=== PATIENT | male | born 1990 | race Hispanic/Latino ===

== ENCOUNTER 2016-12-04 18:02 | Emergency (ER) | payer SELFPAY ==
[2016-12-04 18:50] VITALS: BP 114/84
[2016-12-04] MEDS ORDERED: MOTRIN PO ONE (23:34)
[2016-12-04] MEDS ORDERED: VALIUM PO ONE (23:34)
--- NOTE | 2016-12-04 23:37 | Emergency Department Report ---
ED Back Pain/Injury HPI - General Chief Complaint: Back Pain/Injury Stated Complaint: BACK PAIN/SEIZURE Time Seen by Provider: 12/04/16 23:33 Source: patient Limitations: No Limitations - History of Present Illness Initial Comments: 25-year-old male past medical history asthma presents with complaint of 2 weeks of persistent upper and lower back pain. Patient states that he was hospitalized 2 weeks ago in a hospital in [facility] for one episode of seizure activity. Patient states he has never had seizures before. States he was hospitalized for approximately 3 days then discharged. Patient has not had any seizure activity since that date as he claims. Is complaining of upper and lower back pain currently as 7 out of 10, states that his back feels somewhat stiff. Denies any fever or chills no paresthesias in upper or lower extremities denies any direct trauma to his back other than the fall that he sustained when he had the supposed seizure activity 2 weeks ago. Patient denies any bladder or bowel incontinence. Denies any chest pain no shortness of breath no palpitations no fever no chills denies any rash on back. Patient appears somewhat disheveled and aggravated when I speak to him. Awake alert and oriented 3. Patient is able to ambulate but states that when he tries to turn his trunk to the left to the right or bend over forward he experiences stiffening and pain in his back. He claims he does not currently have a primary medical doctor. Complaint: back pain, back injury, fall Onset/Timin -: week(s) Similar Symptoms Previously: Yes Radiation: none Severity: moderate Severity scale (0 -10): 7 Quality: aching Consistency: constant Improves With: immobilization Worsens With: movement Context: while lifting, turning/twisting, bending, fall Associated Symptoms: denies other symptoms - Related Data Previous Rx's Medication Instructions Recorded Last Taken Type Cyclobenzaprine [Flexeril] 10 mg PO TID PRN #10 tablet 12/05/16 Unknown Rx Naproxen [Naprosyn TAB] 500 mg PO BID PRN #30 tablet 12/05/16 Unknown Rx Allergies Allergy/AdvReac Type Severity Reaction Status Date / Time No Known Allergies Allergy Verified 12/04/16 18:46 ED Review of Systems ROS: Stated complaint: BACK PAIN/SEIZURE Other details as noted in HPI Constitutional: denies: chills, fever Eyes: denies: eye pain, eye discharge, vision change ENT: denies: ear pain, throat pain Respiratory: denies: cough, shortness of breath, wheezing Cardiovascular: denies: chest pain, palpitations Endocrine: no symptoms reported Gastrointestinal: denies: abdominal pain, nausea, diarrhea Genitourinary: denies: urgency, dysuria Musculoskeletal: back pain (patient complaining of 2 weeks of persistent lower and upper back pain). denies: joint swelling, arthralgia Skin: denies: rash, lesions Neurological: other (patient claims that he had a seizure 2 weeks ago for which she was hospitalized in a hospital in [place], states he was there visiting his girlfriend). denies: headache, weakness, paresthesias Psychiatric: denies: anxiety, depression Hematological/Lymphatic: denies: easy bleeding, easy bruising ED Past Medical Hx - Past Medical History Hx Seizures: Yes (NO MEDS) Hx Asthma: Yes - Surgical History Past Surgical History?: No - Social History Smoking Status: Current Every Day Smoker Substance Use Type: None - Medications Home Medications: Home Medications Medication Instructions Recorded Confirmed Last Taken Type Cyclobenzaprine [Flexeril] 10 mg PO TID PRN #10 tablet 12/05/16 Unknown Rx Naproxen [Naprosyn TAB] 500 mg PO BID PRN #30 tablet 12/05/16 Unknown Rx ED Physical Exam - General Limitations: No Limitations General appearance: alert, in no apparent distress - Head Head exam: Present: atraumatic, normocephalic - Eye Eye exam: Present: normal appearance, PERRL, EOMI - ENT ENT exam: Present: mucous membranes moist - Neck Neck exam: Present: normal inspection, full ROM - Respiratory Respiratory exam: Present: normal lung sounds bilaterally. Absent: respiratory distress - Cardiovascular Cardiovascular Exam: Present: regular rate, normal rhythm. Absent: systolic murmur, diastolic murmur, rubs, gallop - GI/Abdominal GI/Abdominal exam: Present: soft, normal bowel sounds - Rectal Rectal exam: Present: deferred, normal rectal tone (patient has normal rectal tone on exam) - Extremities Exam Extremities exam: Present: normal inspection, full ROM, normal capillary refill - Back Exam Back exam: Present: normal inspection, paraspinal tenderness (patient has paraspinal tenderness in upper bilateral trapezius region and bilateral lower back region above the iliac crests, no midline thoracic or lumbar spinal tenderness on clinical palpation) - Neurological Exam Neurological exam: Present: alert, oriented X3, CN II-XII intact, normal gait - Psychiatric Psychiatric exam: Present: normal affect, normal mood - Skin Skin exam: Present: warm, dry, intact, normal color. Absent: rash ED Course Vital Signs 12/04/16 18:46 Temperature 98.3 F Pulse Rate 110 H Respiratory 19 Rate Blood Pressure 114/84 O2 Sat by Pulse 98 Oximetry ED Medical Decision Making - Lab Data Result diagrams: 12/05/16 00:08 12/05/16 00:08 - Medical Decision Making A/P: Musculoskeletal back pain 1-labs within normal limits, x-rays show no significant fracture, possibility of chronic degenerative changes in spine 2-will refer patient to primary care and orthopedics for follow-up 3-naproxen 500 mg when necessary and Flexeril 10 mg when necessary for pain, short courses 4-I advised patient to return to the ED if he experiences any severe paresthesias paralysis inability to ambulate any loss of bladder or bowel control. I educated patient on symptoms of cauda equina and cord compression. Patient expressed understanding of these instructions. 5- upon discharge patient states that his pain is currently 2 out of 10 as experienced significant alleviation of pain and is able to ambulate without assistance and without significant difficulty Critical care attestation.: If time is entered above; I have spent that time in minutes in the direct care of this critically ill patient, excluding procedure time. ED Disposition Clinical Impression: Back pain Qualifiers: Back pain location: back pain in unspecified location Chronicity: chronic Back pain laterality: bilateral Qualified Code(s): M54.9 - Dorsalgia, unspecified; G89.29 - Other chronic pain Disposition: DISCHARGED TO HOME OR SELFCARE Is pt being admited?: No Does the pt Need Aspirin: No Condition: Stable Instructions: Low Back Strain (ED), Acute Low Back Pain (ED), Back Pain (ED) Prescriptions: Cyclobenzaprine [Flexeril] 10 mg PO TID PRN #10 tablet PRN Reason: Muscle Spasm Naproxen [Naprosyn TAB] 500 mg PO BID PRN #30 tablet PRN Reason: Pain Referrals: [facility] [Provider Group] - 3-5 Days PATRICA ZAMUDIO MD [Staff Physician] - 3-5 Days [facility] [Outside] - 3-5 Days [facility] [Outside] - 3-5 Days Forms: Work/School Release Form(ED) Time of Disposition: 02:37
[2016-12-04 23:45] LABS: Urine Drugs of Abuse Note Disclamer
[2016-12-04 23:53] LABS: Bilirubin,Urine NEG (Negative); Blood,Urine NEG (Negative); Ketones,Urine 80 mg/dL (Negative); Leukocyte Esterase,Urine NEG (Negative); Mucus,Urine 3+ /HPF; Nitrite,Urine NEG (Negative)
[2016-12-05 00:29] LABS: Basophils % (Auto) 0.6 % (0.0-1.8); Eosinophils % (Auto) 2.8 % (0.0-4.3); Hematocrit 45.2 % (35.5-45.6); Hemoglobin 15.6 gm/dl (11.8-15.2); Mean Corpuscular HGB Conc 35 % (32-34); Mean Corpuscular Hemoglobin 30 pg (28-32); Mean Corpuscular Volume 87 fl (84-94); Red Cell Distribution Width 13.4 % (13.2-15.2); White Blood Count 9.7 K/mm3 (4.5-11.0)
[2016-12-05 00:53] LABS: Blood Urea Nitrogen 9 mg/dL (9-20); Calcium 9.2 mg/dL (8.4-10.2); Carbon Dioxide 25 mmol/L (22-30); Glucose 83 mg/dL (75-100)
[2016-12-05 00:54] LABS: Anion Gap 20 mmol/L; Chloride 97.3 mmol/L (98-107); Creatine Kinase 139 units/L (55-170); Magnesium 2.2 mg/dL (1.7-2.3); Potassium 4.6 mmol/L (3.6-5.0); Sodium 138 mmol/L (137-145)
[2016-12-05] MEDS ORDERED: NORCO 5/325 PO ONE (01:08)
--- NOTE | 2016-12-05 02:05 | XRay Report ---
FINAL REPORT PROCEDURE: XR SPINE LUMBOSACRAL 2-3V TECHNIQUE: Lumbar spine radiographs, frontal and lateral views. CPT 99935 HISTORY: worsening back pain COMPARISON: No prior studies are available for comparison. FINDINGS: There are compression deformities of the superior endplates of T12, L1 and L2 which could be fractures but could be chronic. If there are acute symptoms, MRI may be helpful. The remainder of the vertebral bodies are unremarkable. The disc spaces are normal. There is no malalignment. Facet joints are intact. Soft tissues are unremarkable. IMPRESSION: There are compression deformities of the superior endplates of T12, L1 and L2 which could be fractures but could be chronic. If there are acute symptoms, MRI may be helpful.
--- NOTE | 2016-12-05 02:07 | XRay Report ---
FINAL REPORT PROCEDURE: XR SPINE THORACIC 3V TECHNIQUE: Four views of the thoracic spine. HISTORY: worsenign back pain COMPARISON: No prior studies are available for comparison. FINDINGS: There is slight depression and sclerosis at the superior endplates of T9, T10, T11 and T12. These could be degenerative changes or old fractures. If there are acute symptoms, MRI may be helpful. The disc spaces are normal. There is no malalignment. The soft tissues are unremarkable. IMPRESSION: There is slight depression and sclerosis at the superior endplates of T9, T10, T11 and T12. These could be degenerative changes or old fractures. If there are acute symptoms, MRI may be helpful. .
[2016-12-05 04:10] LABS: Platelet Count 300 K/mm3 (140-440)
== END 2016-12-05 03:30 | disposition home or self-care (01) ==
LOC: ED 18:02
DX: M54.5 Low back pain (principal); M54.6 Pain in thoracic spine; G89.29 Other chronic pain; R56.9 Unspecified convulsions; J45.909 Unspecified asthma, uncomplicated; F17.200 Nicotine dependence, unspecified, uncomplicated
CPT/HCPCS: 36415; 72072; 72100; 80048; 80307; 81001; 82550; 83735; 85025; 99284

== ENCOUNTER 2020-12-01 22:57 | Emergency (ER) | payer SELFPAY ==
[2020-12-01] MEDS ORDERED: AMOXICILLIN/K CLAV 875/125MG TAB PO ONE (23:59)
[2020-12-01] MEDS ORDERED: ACETAMINOPHEN 500 MG TAB PO ONE (23:59)
[2020-12-01] MEDS ORDERED: IBUPROFEN 800 MG TAB PO ONE (23:59)
[2020-12-02] MEDS ORDERED: DIPHtheria,PERTUSSIS(ACELL),TETANUS VACCINE/PF 0.5 ML VIAL IM ONE (00:02)
--- NOTE | 2020-12-02 00:05 | Emergency Department Report ---
ED Animal Bite HPI - General Stated Complaint: DOG BITE Source: patient Mode of arrival: Ambulatory Limitations: No Limitations - History of Present Illness Initial Comments: Patient is a 29-year-old white male with history of asthma and seizures who presents to the ED with complaint of acute onset painful bleeding medial right thigh puncture wound after being bitten by a dog about 5 hours ago. 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 Patient states that he is unsure as to the vaccination status of the dog. Patient states that the pain on the right leg has been worsening since the incident occurred but the bleeding is well controlled. Patient states that he is not up-to-date with his tetanus vaccinations. Patient denies numbness and tingling or weakness of lower extremities bilaterally, chest pain or shortness of breath, syncope, seizures, nausea and vomiting, loss of consciousness, headache or back pain and hip pain. MD Complaint: animal bite, animal-related injury, other (Medial right thigh puncture wound from dog bites) -: Sudden, hour(s) (5) Location: other (Medial right thigh) Right: Thigh (medial ) Animal: dog Description: household pet, immunizations unknown, appeared well Mechanism: bite, scratch, contact with mucous membr Pain Description: sharp, constant Severity scale (0 -10): 8 Context: unprovoked Associated Symptoms: bleeding. denies: erythema, discharge from wound, fever, chills, rash, loss of consciousness, cough, headache, diaphoresis, shortness of breath, other - Related Data Patient Tetanus UTD: No Previous Rx's Medication Instructions Recorded Last Taken Type Cyclobenzaprine [Flexeril] 10 mg PO TID PRN #10 tablet 12/05/16 Unknown Rx Naproxen [Naprosyn TAB] 500 mg PO BID PRN #30 tablet 12/05/16 Unknown Rx Acetaminophen/Codeine [Tylenol 1 tab PO Q6H PRN #10 tab 12/02/20 Unknown Rx /Codeine # 3 tab] Amoxicillin/Potassium Clav 1 each PO Q12H #20 tablet 12/02/20 Unknown Rx [Augmentin 875-125 Tablet] Ibuprofen [Motrin] 800 mg PO Q8HR PRN #30 tablet 12/02/20 Unknown Rx Allergies Allergy/AdvReac Type Severity Reaction Status Date / Time No Known Allergies Allergy Verified 12/04/16 18:46 ED Review of Systems ROS: Stated complaint: DOG BITE Other details as noted in HPI Constitutional: denies: chills, fever Eyes: denies: eye pain, eye discharge, vision change ENT: denies: ear pain, throat pain Respiratory: denies: cough, shortness of breath, wheezing Cardiovascular: denies: chest pain, palpitations Endocrine: no symptoms reported Gastrointestinal: denies: abdominal pain, nausea, diarrhea Genitourinary: denies: urgency, dysuria Musculoskeletal: arthralgia (Medial right thigh pain from dog bite wound). denies: back pain, joint swelling Skin: other (Bleeding puncture wound of medial right thigh from dog bite). denies: rash, lesions Neurological: denies: headache, weakness, paresthesias Psychiatric: denies: anxiety, depression Hematological/Lymphatic: denies: easy bleeding, easy bruising ED Past Medical Hx - Past Medical History Hx Seizures: Yes (NO MEDS) Hx Asthma: Yes - Social History Smoking Status: Current Every Day Smoker Substance Use Type: None - Medications Home Medications: Home Medications Medication Instructions Recorded Confirmed Last Taken Type Cyclobenzaprine [Flexeril] 10 mg PO TID PRN #10 tablet 12/05/16 Unknown Rx Naproxen [Naprosyn TAB] 500 mg PO BID PRN #30 tablet 12/05/16 Unknown Rx Acetaminophen/Codeine [Tylenol 1 tab PO Q6H PRN #10 tab 12/02/20 Unknown Rx /Codeine # 3 tab] Amoxicillin/Potassium Clav 1 each PO Q12H #20 tablet 12/02/20 Unknown Rx [Augmentin 875-125 Tablet] Ibuprofen [Motrin] 800 mg PO Q8HR PRN #30 tablet 12/02/20 Unknown Rx ED Physical Exam - General General appearance: alert, in no apparent distress - Head Head exam: Present: atraumatic, normocephalic, normal inspection - Eye Eye exam: Present: normal appearance, PERRL, EOMI Pupils: Present: normal accommodation - ENT ENT exam: Present: normal exam, normal orophraynx, mucous membranes moist, TM's normal bilaterally, normal external ear exam - Neck Neck exam: Present: normal inspection, full ROM - Respiratory Respiratory exam: Present: normal lung sounds bilaterally. Absent: respiratory distress, wheezes, rales, rhonchi, chest wall tenderness, accessory muscle use, decreased breath sounds, prolonged expiratory - Cardiovascular Cardiovascular Exam: Present: regular rate, normal rhythm, normal heart sounds. Absent: systolic murmur, diastolic murmur, rubs, gallop - GI/Abdominal GI/Abdominal exam: Present: soft, normal bowel sounds. Absent: distended, tenderness, guarding, rebound, hyperactive bowel sounds, organomegaly - Extremities Exam Extremities exam: Present: normal inspection, full ROM, tenderness (Palpable localized medial right thigh tenderness with swelling due to a bleeding puncture wound from a dog bite). Absent: normal capillary refill, pedal edema, joint swelling - Back Exam Back exam: Present: normal inspection, full ROM. Absent: tenderness, CVA tenderness (L), muscle spasm, paraspinal tenderness - Neurological Exam Neurological exam: Present: alert, oriented X3, CN II-XII intact, normal gait, reflexes normal - Psychiatric Psychiatric exam: Present: normal affect, normal mood - Skin Skin exam: Present: warm, dry, intact, normal color, other (Bleeding puncture wound of medial right thigh with mild swelling and localized tenderness due to dog bite). Absent: rash ED Course Vital Signs 12/01/20 23:49 Temperature 98.1 F Pulse Rate 89 Respiratory 18 Rate Blood Pressure 123/81 O2 Sat by Pulse 98 Oximetry Critical care attestation.: If time is entered above; I have spent that time in minutes in the direct care of this critically ill patient, excluding procedure time. ED Disposition Clinical Impression: Dog bite of right thigh without complication Qualifiers: Encounter type: initial encounter Qualified Code(s): S71.151A - Open bite, right thigh, initial encounter Puncture wound of right thigh Qualifiers: Encounter type: initial encounter Qualified Code(s): S71.131A - Puncture wound without foreign body, right thigh, initial encounter Disposition: - TO HOME OR SELFCARE Is pt being admited?: No Does the pt Need Aspirin: No Condition: Stable Instructions: Animal Bite, Adult, [id number], Puncture Wound, [id number] Additional Instructions: Take medication with food, drink plenty of fluids and follow-up with your primary care physician in 7 to 10 days for reevaluation. Return to the ED immediately if your symptoms get worse especially if you develop severe pain, swelling and redness around the right thigh. Ensure that the dog is fully vaccinated by contacting the corner of the dog and if not then return to the ED for rabies vaccination. Prescriptions: Amoxicillin/Potassium Clav [Augmentin 875-125 Tablet] 1 each PO Q12H #20 tablet Ibuprofen [Motrin] 800 mg PO Q8HR PRN #30 tablet PRN Reason: Pain , Severe (7-10) Acetaminophen/Codeine [Tylenol /Codeine # 3 tab] 1 tab PO Q6H PRN #10 tab PRN Reason: Severe pain Referrals: [facility] [Provider Group] - 7-10 days Forms: Work/School Release Form(ED) Time of Disposition: 00:08 Print Language: SINHALA
[2020-12-02 01:26] VITALS: BP 124/82
== END 2020-12-02 01:24 | disposition home or self-care (01) ==
LOC: ED 22:57
DX: S71.131A Puncture wound without foreign body, right thigh, initial encounter (principal); S71.151A Open bite, right thigh, initial encounter; R56.9 Unspecified convulsions; J45.909 Unspecified asthma, uncomplicated; F17.200 Nicotine dependence, unspecified, uncomplicated; Z79.1 Long term (current) use of non-steroidal anti-inflammatories (NSAID); Z79.2 Long term (current) use of antibiotics; Z79.899 Other long term (current) drug therapy; W54.0XXA Bitten by dog, initial encounter; Y93.89 Activity, other specified; Y92.89 Other specified places as the place of occurrence of the external cause; Y99.8 Other external cause status
CPT/HCPCS: 90471; 90715; 99282